=== PATIENT | female | born 1985 | race Caucasian/White ===

== ENCOUNTER 2017-04-25 11:56 | Emergency (ER) | payer OTHER, SELFPAY | END 2017-04-25 14:15 | disposition home or self-care (01) | LOC: ERS 11:56 | DX: T22.50XA Corrosion of first degree of shoulder and upper limb, except wrist and hand unspecified site, initial encounter (principal); F41.9 Anxiety disorder, unspecified; F17.210 Nicotine dependence, cigarettes, uncomplicated; Z79.899 Other long term (current) drug therapy; Y92.531 Health care provider office as the place of occurrence of the external cause; Y99.0 Civilian activity done for income or pay | CPT/HCPCS: 99283 ==